=== PATIENT | female | born 1950 | race Caucasian/White ===

== ENCOUNTER 2017-02-17 06:06 | Inpatient (IN) | payer OTHER ==
--- NOTE | ~2017-02-17 | CN ---
Consultation Report [facility] [address] [place]. [address] NAME: JATIN HENNESSY : 54 STATUS : ADM Pato PAT#: [id number] AGE: 67 ADM/REG DATE : 02/17/17 MR#: [id number] REPORT SERV DATE: 02/17/17 DICTATED BY: CLYDE VALLEJO DATE: 02/17/17 REPORT STATUS : Draft TRANSCRIBED BY: MODTalha DATE: 02/17/17 CONSULTATION DATE OF CONSULTATION: 02/17/2017 REASON FOR CONSULTATION: Evaluation for symptomatic carotid stenosis. BRIEF HISTORY: The patient is a 67-year-old female with past medical history that is unremarkable except for tobacco abuse, who presented to the hospital with sudden onset of right upper extremity and right lower extremity numbness and weakness. She also had difficulty finding her words. Her symptoms have persisted and actually worsened on Monday and . She came into the hospital for further evaluation and treatment. Since that time, she feels like she has gotten better. She still does not feel quite right. In particular, she feels like she has some weakness in her right upper extremity and feels like she is still having trouble finding her words. She denies any other slurred speech. She denies any other stroke-like symptoms in the past. She denies transient monocular blindness. PAST MEDICAL HISTORY: None, but she does not normally see a doctor. PAST SURGICAL HISTORY: None. SOCIAL HISTORY: She smokes. She denies any alcohol or drug use. FAMILY HISTORY: Heart disease, hypertension, and stroke. MEDICATIONS: None. ALLERGIES: PENICILLIN, WHICH CAUSES A RASH. REVIEW OF SYSTEMS: A complete review of systems was performed and is negative with the exception of the aforementioned findings. PHYSICAL EXAMINATION: VITAL SIGNS: Documented on the chart and were reviewed. GENERAL: The patient is awake, alert, and oriented, in no apparent distress. HEAD AND NECK: Benign without any carotid bruits. HEART: Regular rate and rhythm. LUNGS: Clear. ABDOMEN: Soft, nontender, nondistended with a nonaneurysmal aorta. EXTREMITIES: She has a normal complement of upper extremity pulses without any significant edema or ischemic ulcerations. She has palpable femoral, popliteal, and pedal pulses. She has no significant edema or ischemic ulcerations. Consultation Report [facility] [address] [place]. [address] NAME: JATIN HENNESSY : 54 STATUS : ADM Pato PAT#: [id number] AGE: 67 ADM/REG DATE : 02/17/17 MR#: [id number] REPORT SERV DATE: 02/17/17 DICTATED BY: CLYDE VALLEJO DATE: 02/17/17 REPORT STATUS : Draft TRANSCRIBED BY: MODTalha DATE: 02/17/17 NEUROLOGIC: Reveals a little bit of difficulty finding her words. She is able to speak. She has a mild pronator drift on the right. Otherwise, she has pretty good strength. She has a little bit of weakness in her hip flexors proximally. She is, however, able to lift her leg against gravity. MUSCULOSKELETAL: Reveals no flexion contractures. ASSESSMENT AND PLAN: It looks like this lady has hypertension and has had symptoms of a left hemispheric stroke. She just had an MRI. I reviewed the images and it looks like she has had a left hemispheric stroke in the MCA distribution. She has a carotid duplex that shows grade 3 carotid disease bilaterally. I would like to get a CT angiogram to better delineate her anatomy. If she does indeed have grade 2 or grade 3 left internal carotid artery stenosis, she may benefit from a carotid endarterectomy or stent for stroke risk reduction. Eventually, we may need to talk about performing surgery on her contralateral side for asymptomatic disease. I have spent some time talking to her today about the importance of smoking cessation. She should be on an aspirin and a statin. IT COMPLIANCE ANALYST/MODTalha Clyde Vallejo M.D. / [id number] CC: Konrad John M.D.
--- NOTE | ~2017-02-17 | OP ---
Record Of Operation [facility] [address] [place]. [address] NAME: JATIN HENNESSY : 54 STATUS : ADM Pato PAT#: [id number] AGE: 67 ADM/REG DATE : 02/17/17 MR#: [id number] REPORT SERV DATE: 02/21/17 DICTATED BY: CLYDE VALLEJO DATE: 02/21/17 REPORT STATUS : Draft TRANSCRIBED BY: MODL DATE: 02/21/17 DATE OF PROCEDURE: 02/20/2017 PREOPERATIVE DIAGNOSIS: Symptomatic left internal carotid artery stenosis. POSTOPERATIVE DIAGNOSIS: Symptomatic left internal carotid artery stenosis. PROCEDURE: Left carotid endarterectomy with bovine pericardial patch angioplasty. SURGEON: Clyde Vallejo M.D. PHARMACY RESIDENT: Mohit. ANESTHESIA: General. INDICATIONS: The patient is a 67-year-old female, who presented with left hemispheric stroke like symptoms. Duplex and CT confirmed the bilateral grade 3 internal carotid artery stenosis. Thus, she was consented for a left carotid endarterectomy for stroke risk reduction. DESCRIPTION OF PROCEDURE: After informed consent was obtained, the patient was taken to the operating room and placed in the supine position on the operating table. She was intubated and general anesthesia was administered. The patient's left neck was prepped and draped in the usual sterile fashion. A longitudinal skin incision was made along the left neck. Cautery was used to deepen the incision. I dissected out the left common carotid artery as well as the proximal internal and external carotid artery. I systemically heparinized during the dissection. I controlled the common carotid artery as well as the proximal internal and external carotid arteries. I created a longitudinal arteriotomy from the common carotid artery onto the external carotid artery. I found a severe stenosis in the left carotid bulb without plaque hemorrhage. I then performed an endarterectomy of the distal common carotid artery as well as the proximal internal and external carotid arteries. I then looped loose debris and sewed on a bovine pericardial patch. I flushed of air and debris before tying down the sutures. I then washed out the wound, achieved hemostasis, and closed the wound in layers. The patient awoke without any focal neurologic deficits. However, the patient became extremely hypertensive with a blood pressure of 260. She developed bleeding from her left neck that resolves with hypertension controlled. The patient tolerated the procedure well without any other intraprocedural complications noted. SOCIAL MEDIA ANALYST/MODL Clyde Vallejo M.D. / [id number] Record Of Operation [address] [place] [address] NAME: JATIN HENNESSY : 54 STATUS : ADM Pato PAT#: [id number] AGE: 67 ADM/REG DATE : 02/17/17 MR#: [id number] REPORT SERV DATE: 02/21/17 DICTATED BY: CLYDE VALLEJO DATE: 02/21/17 REPORT STATUS : Draft TRANSCRIBED BY: CHLOE DATE: 02/21/17 CC: Konrad John M.D.
--- NOTE | ~2017-02-17 | CN ---
Consultation Report [facility] [address] [place]. [address] NAME: JATIN HENNESSY : 54 STATUS : ADM Pato PAT#: [id number] AGE: 67 ADM/REG DATE : 02/17/17 MR#: [id number] REPORT SERV DATE: 02/17/17 DICTATED BY: DATE: REPORT STATUS : Draft TRANSCRIBED BY: MODL DATE: 02/17/17 NEUROLOGY CONSULTATION DATE OF CONSULTATION: 02/17/2017 REASON FOR CONSULT: Stroke. HISTORY OF PRESENT ILLNESS: This is a 67-year-old female who presented to [facility] as a transfer from outside hospital on 02/17/2017. The patient reports on 02/15/2017, she started experiencing numbness in the right lower extremity with mild associated weakness as well as some weakness in the right upper extremity and numbness. The patient's symptom has remained stable since onset with the patient having some dysarthria on the morning of 02/17/2017. The patient denies similar symptoms in the past and denies any left-sided involvement. The patient denies any vision abnormalities and denies any current language difficulties. The patient is not aware she has elevated blood pressure which was noted to be 260/94 at the outside hospital. The patient thus is aware that she has hypertension as a past medical history but does not remember if she was supposed to be on medication for blood pressure. The patient currently does not have a primary care physician. Otherwise, the patient denies any recent illness, fever, chills, nausea, vomiting, chest pain, or shortness of breath and denies any medication she takes at home. PAST MEDICAL HISTORY: The patient's past medical history is significant for hypertension. Review of systems negative except for those mentioned in the HPI. ALLERGIES: THE PATIENT REPORTS ALLERGY TO PENICILLIN. SOCIAL HISTORY: Reports tobacco usage. Denies alcohol usage and denies illicit drug usage. FAMILY HISTORY: Significant for heart disease as well as blood pressure issue, cancer, and stroke. The patient denies any home medications prior to the hospitalization. Again review of systems negative except for those mentioned in the HPI. PHYSICAL EXAMINATION: VITAL SIGNS: The patient, upon hospital arrival, was noted to have vital signs with T-max of 97.7, heart rate of 66, respirations of 16, and blood pressure of 225/88. GENERAL: The patient is well developed, well nourished, in no acute distress. CARDIOVASCULAR: Regular rate and rhythm. No carotid bruits were otherwise auscultated. PULMONARY: Examination was clear to auscultation bilaterally. NEUROLOGICAL: Generally, the patient is alert and oriented to person, place, year, and month. Follows simple and 2-step commands. Usually distracted at the time of evaluation. Intact registration. Difficulties with some recalls. No dysarthria and no aphasia. Consultation Report [facility] [id number] [place]. [address] NAME: JATIN HENNESSY : 54 STATUS : ADM Pato PAT#: [id number] AGE: 67 ADM/REG DATE : 02/17/17 MR#: [id number] REPORT SERV DATE: 02/17/17 DICTATED BY: DATE: REPORT STATUS : Draft TRANSCRIBED BY: MODTalha DATE: 02/17/17 Follows simple and 2-step commands. Cranial nerves 2 through 12, pupils equal, round, and reactive to light. Extraocular eye movement was noted to be intact with intact peripheral vision. Decreased nasolabial fold on the right. Mild dysarthria was noted on evaluation but otherwise symmetrical facial sensation was noted. Midline tongue. Normal palatal movement. Normal hearing. The patient was noted to have mild pronator drift on the right upper extremity but otherwise 5/5 proximal and distal strength in bilateral upper extremity. Symmetrical sensation in bilateral upper extremity. Normal ejqxao-ow-rudj examination without ataxia with the patient noted to have 5/5 bilateral lower extremity strength. Reports decreased sensation on the right with tingling. Deep tendon reflex was 2+ throughout. No toe movement on the right plantar reflex. Downgoing toe on the left plantar reflex. The patient demonstrated normal stable gait. LABORATORY STUDY: Laboratory study is currently pending. MRI is pending. Echocardiogram is pending. IMPRESSION: 1. Right hemiparesis. Concern for possible subcortical stroke versus hypertensive emergency. Recommending slow blood pressure control with a goal of blood pressure less than 210 mmHg. We will continue aspirin and Lipitor that was started during the hospitalization. MRI of the brain as well as stroke workup is pending. NIH stroke scale was 4. The patient's symptoms started on 02/15/2017. 2. Hypertension. Keep systolic blood pressure less than 210 mmHg. 3. Tobacco abuse. Counseled the patient regarding tobacco cessation. RECOMMENDATIONS: 1. Aspirin and Lipitor. 2. MRI of the brain without contrast. 3. MRA of the head and neck. 4. Echocardiogram. 5. Fasting lipid panel and hemoglobin A1c. 6. Keep systolic blood pressure less than 210 mmHg. 7. The patient was counseled regarding tobacco cessation. [facility]/MODL Aris Wilkerson MD / [id number] CC: Konrad John M.D.
--- NOTE | ~2017-02-17 | HP ---
History And Physical [facility] [address] [facility] [place]. [address] NAME: JATIN HENNESSY : 54 STATUS : ADM Pato PAT#: [id number] AGE: 67 ADM/REG DATE : 02/17/17 MR#: [id number] REPORT SERV DATE: 02/17/17 DICTATED BY: REYES JOHN DATE: 02/17/17 REPORT STATUS : Draft TRANSCRIBED BY: MODL DATE: 02/17/17 DATE OF ADMISSION: 02/17/2017 IDENTIFYING DATA: A 67-year-old white female, who has no primary care provider. CHIEF COMPLAINT: Possible stroke. HISTORY OF PRESENT ILLNESS: This history of present illness is obtained by discussion directly with the patient as well as her son and [id number] at the bedside with her permission as well as reviewing the records that came with her from [facility] in [place], [place]. This patient states on Monday of this week, in the evening she noticed numbness of her right hand. By Monday of this week, she still had numbness in her right hand, but also numbness in her right leg, mostly in the thigh, a little bit in the foot, then on 02/16/2017, she noticed the same findings. Finally, decided to go to the emergency room at [facility] in [place]. On arrival there, her blood pressure was 260/94, and their notes indicated that they treated her with a combination of hydralazine 10 mg and 10 mg IV, plus clonidine 0.2 mg orally, and Zofran 4 mg intravenously. They state her NIH stroke score was 1. They reported a CT of the brain was unremarkable and requested transfer here for neurology evaluation. The patient states, she has never had any episodes like this in the past. She admits that along with this episode, she noticed some weakness in her right hand, and she stated yesterday evening her speech seemed a little difficult. Her family states, it sound a little slurred, and she was reportedly a little slow to comprehend things. She states, she was swallowing fine, no headache, no past similar history, no history of head trauma. REVIEW OF SYSTEMS: On review of systems, she states she has a dry mouth. She has a chronic stable cough. She had some nausea and vomiting with dry heaves yesterday. She has chronic constipation. She had some recent dark stools, when she use Pepto-Bismol. She states, she has had decreased appetite for the last three days. She also states, she has been taking some over-the- counter ibuprofen, maybe three or four times per month. 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 ALLERGIES: SHE STATES, SHE IS ALLERGIC TO PENICILLIN. SHE STATES, IT CAUSES HER A RASH. PAST MEDICAL HISTORY: She denies any history of diabetes, asthma, COPD, heart disease, stroke, seizure, peptic ulcer, biliary tract disease, liver disease, chronic kidney disease, kidney stones, thyroid disease, cancer, or sleep apnea. History And Physical [address] [address] NAME: JATIN HENNESSY : 54 STATUS : ADM Pato PAT#: [id number] AGE: 67 ADM/REG DATE : 02/17/17 MR#: [id number] REPORT SERV DATE: 02/17/17 DICTATED BY: REYES JOHN DATE: 02/17/17 REPORT STATUS : Draft TRANSCRIBED BY: CHLOE DATE: 02/17/17 She states, her only hospitalization in the past was for childbirth. She states that, she may have had high blood pressure, but then later states she really has not had it evaluated by physician. She is on no medications. PAST SURGICAL HISTORY: None. HOME MEDICATIONS: No prescription medications. SOCIAL HISTORY: She smokes a pack per day for about thirty years. She quit when these symptoms started three days ago. She denies alcohol use. 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 She lives with son and [id number]-[id number], who are present at the bedside. She walks without an assistive device. FAMILY HISTORY: Mother reportedly had heart disease. Dad may have had high blood pressure, but had some unknown type of cancer that he of. Siblings, one sister with a stroke, one brother with complications from alcohol. DIAGNOSTIC DATA: Labs from [facility] dated 02/17/2017, white count 9, hemoglobin 15.1, platelets 339,000. Sodium 142, potassium 3.6, chloride 105, CO2 is 25, BUN 9.7, creatinine 0.8, glucose 121. Liver profile, normal. Urine specimen showed leukocyte esterase 3+, 25 to 50 white blood cells, 0 to 2 epithelial cells, 2 to 5 red blood cells, trace bacteria. PHYSICAL EXAMINATION: VITAL SIGNS: Temp 97.7, pulse 66, respirations 16, blood pressure 225/88, O2 saturation is 98% on room air. BMI is 29.5. GENERAL: Well-developed female, who at the moment appears in no acute distress. HEENT: Head is atraumatic. Pupils are equal, round, and reactive to light. Extraocular motions are intact. No scleral icterus noted. Ears, externally unremarkable. No inflammatory changes noted. Normal hearing bilaterally. Nose, noninflamed externally. Septum midline. Nares patent. Mouth is dry, but there is good gag. No redness of the throat, gums, or lips. NECK: Supple. No lymph node or thyroid enlargement. Carotids have a prominent right-sided bruit. No jugular venous distention. LUNGS: Clear. Good air flow. No wheezes. No rhonchi. Good air flow throughout in all lung hull. Normal respiratory effort. HEART: Regular rate and rhythm without murmur, gallop, click, or rub. ABDOMEN: Bowel sounds are positive. Soft, nondistended, nontender. No masses. No organomegaly. No bruits in the abdomen. EXTREMITIES: Warm good pulses. No clubbing, no cyanosis, no edema. No actively inflamed skin or joints. NEUROLOGIC: She is alert, oriented, and cooperative with grossly normal mentation and speech as well as motor and cranial nerves 2 through 12. Her nrzgxz-sp-azax testing bilaterally is normal. Her rapid alternating movements are normal. She is right handed. No Babinski. No clonus noted. She has mildly diminished sensation in her right forearm distally. History And Physical [address] [place]. [address] NAME: JATIN HENNESSY : 54 STATUS : ADM Pato PAT#: [id number] AGE: 67 ADM/REG DATE : 02/17/17 MR#: [id number] REPORT SERV DATE: 03/24/17 DICTATED BY: REYES JOHN DATE: 02/17/17 REPORT STATUS : Draft TRANSCRIBED BY: CHLOE DATE: 02/17/17 ASSESSMENT: 1. Right-sided symptoms with hand and forearm numbness, slurred speech, and some weakness in the right hand reported by family lasting over the last three plus days. This is suggestive of left middle cerebral artery ischemic infarction. 2. Hypertensive urgency in the emergency room and her initial blood pressure here represents that as well. 3. Cigarette smoker. 4. Right carotid bruit. 5. Asymptomatic bacteriuria. PLAN: The patient is being admitted to the stroke unit on telemetry. We are going to get an EKG and echo. We will get carotid ultrasound, get an MRI of the brain, MRA of the brain as well. I have asked Neurology to see the patient. We will put her on statin and aspirin. Blood pressure treatment will be dependent on if it is greater than 220 systolic or greater than 120 diastolic. Son and daughter updated at bedside at this time. RSG/CHLOE Reyes John M.D. / [id number] CC: Reyes John M.D.
--- NOTE | ~2017-02-17 | DS ---
Discharge Summary [facility] [address] [place]. [address] NAME: JATIN HENNESSY : 54 STATUS : DIS IN PAT#: [id number] AGE: 67 ADM/REG DATE : 02/17/17 MR#: [id number] REPORT SERV DATE: 02/25/17 DICTATED BY: NHUNG CHÁVEZ DATE: 02/25/17 REPORT STATUS : Draft TRANSCRIBED BY: MODL DATE: 02/25/17 ADMISSION DATE: 02/17/2017 DISCHARGE DATE: 02/25/2017 DISCHARGE DIAGNOSES: 1. Acute left middle cerebral artery stroke. 2. Left carotid stenosis, status post left carotid endarterectomy. 3. Peripheral vascular disease. 4. Tobacco abuse. 5. Hypertension, new diagnosis. The patient was put on multiple antihypertensive regimens this admission. 6. Constipation, relieved. CONSULTANTS: 1. Dr. Vallejo. 2. Dr. Wilkerson. PROCEDURES: Left carotid endarterectomy. HISTORY OF PRESENTATION: This is a 67-year-old female patient, who does not have primary care physician or past medical history, came to the hospital with neurology symptoms of right arm weakness and numbness. Please see dictated H and P. HOSPITAL COURSE: She was admitted to the hospital with ruled out stroke, had evaluation with Neurology Department. During the evaluation, she was found to have left MCA stroke and also was found to have carotid stenosis. Because of the symptom of the stroke and the critical stenosis, the patient was seen by Dr. Vallejo and had a left-sided carotid endarterectomy. After the procedure, she was recovering well. The main issue after the stroke was controlling the blood pressure. She was not treated for blood pressure in the past prior to this admission. She was put on multiple antihypertensive regimens and finally, her blood pressure is more under control. She is a current smoker. Long discussion was given for the education of smoking cessation, and she voiced understanding. She also suffered from constipation with the Percocet use in the hospital and enema helped to be relieved. Overall, had a stable hospitalization and did not have any deficit from the stroke, and the patient is ambulating without any problem. Will be discharged to home. Highly recommended to find a primary care physician and also follow up with Dr. Vallejo in four to six weeks. DISCHARGE MEDICATIONS: Norvasc 10 mg twice a day, aspirin 325 mg once a day, Lipitor 40 mg once at bedtime, Lopressor 25 mg twice a day, triamterene and hydrochlorothiazide 37.5/25 one tab once a day, ranitidine 150 mg once a day, multivitamin once a day, hydrocodone as needed. Discharge Summary [place] [id number] [place]. [address] NAME: JATIN HENNESSY : 54 STATUS : DIS IN PAT#: [id number] AGE: 67 ADM/REG DATE : 02/17/17 MR#: [id number] REPORT SERV DATE: 02/25/17 DICTATED BY: NHUNG CHÁVEZ DATE: 02/25/17 REPORT STATUS : Draft TRANSCRIBED BY: CHLOE DATE: 02/25/17 TIME SPENT: More than 30 minutes on discharge coordination and education. EKL/CHLOE Nhung Chávez M.D. / [id number] CC: Nhung Chávez M.D.
[2017-02-17] MEDS ORDERED: ZANTAC 150 PO (11:49)
[2017-02-17] MEDS ORDERED: MULTIVITAMI1 PO (11:50)
[2017-02-17] MEDS ORDERED: ADVIL PO (11:50)
[2017-02-17 12:05] LABS: BASOPHILS 0.3 %; BASOPHILS ABSOLUTE 0.03 10/3/uL (0.0-0.16); EOSINOPHILS 0.3 %; EOSINOPHILS ABSOLUTE 0.03 10/3/uL (0.0-0.53); HEMATOCRIT 43.1 % (36.0-48.0); HEMOGLOBIN 15.1 g/dL (12.0-16.0); IMMATURE GRANULOCYTES 0.3 %; IMMATURE GRANULOCYTES ABSOLUTE 0.03 10/3/uL (0.0-0.11); LYMPHOCYTES 18.7 %; LYMPHOCYTES ABSOLUTE 1.89 10/3/uL (0.67-4.30); MEAN CORPUSCULAR VOLUME 88.5 fL (80-100); MEAN PLATELET VOLUME 9.9 fL (9.2-13.0); MONOCYTES 8.7 %; MONOCYTES ABSOLUTE 0.88 10/3/uL (0.21-1.20); NEUTROPHILS 71.7 %; NEUTROPHILS ABSOLUTE 7.26 10/3/uL (2.02-8.40); PLATELET COUNT 327 10/3/uL (150-400); RBC DISTRIBUTION WIDTH 12.7 % (12.0-16.0); RED CELL COUNT 4.87 10/6/uL (4.0-5.6); WHITE BLOOD CELLS 10.1 10/3/uL (4.5-10.5)
[2017-02-17 12:07] LABS: MANUAL DIFF NO %
[2017-02-17 12:15] LABS: INTERNATIONAL NORMAL RATI 1.1 UNITS (-); PARTIAL THROMBO TIME 28.8 SEC (22.5-37.2); PROTIME (NOT ORD) 13.7 SEC (12.0-14.5)
[2017-02-17 12:31] LABS: CHOLESTEROL 157 MG/DL (< 200); CK-MB 12.6 NG/ML; CKMB INDEX (NOT ORD) 14.7; CPK 86 U/L (0-200); HDL CHOLESTEROL 52 MG/DL (> 49); LDL CHOLESTEROL 84 MG/DL (< 130); NON-HDL CHOLESTEROL 105 MG/DL (< 160); TRIGLYCERIDE 107 MG/DL (< 150); TROPONIN I <0.02 NG/ML (<0.05)
[2017-02-17 19:47] LABS: ASCORBIC ACID (UR NOT ORDER) NEG (NEG); BILIRUBIN, URINE NEGATIVE (NEG); KETONE, URINE TRACE MG/DL (NEG); LEUKOCYTE ESTERASE(NOT OR SMALL (NEG); WBC (NOT ORDERED) (RFLEX) 2 (0-5)
[2017-02-17 20:55] LABS: CK-MB 12.4 NG/ML; CPK 91 U/L (0-200); TROPONIN I <0.02 NG/ML (<0.05)
[2017-02-17 20:57] LABS: CKMB INDEX (NOT ORD) 13.6
[2017-02-17 22:42] LABS: CREATININE 0.81 MG/DL (0.55-1.02)
[2017-02-18 04:36] LABS: CK-MB 9.5 NG/ML; CPK 72 U/L (0-200); TROPONIN I <0.02 NG/ML (<0.05)
[2017-02-18 04:39] LABS: CKMB INDEX (NOT ORD) 13.2
[2017-02-19 15:22] LABS: BASOPHILS 0.3 %; BASOPHILS ABSOLUTE 0.03 10/3/uL (0.0-0.16); EOSINOPHILS 0.9 %; EOSINOPHILS ABSOLUTE 0.08 10/3/uL (0.0-0.53); HEMATOCRIT 44.8 % (36.0-48.0); HEMOGLOBIN 15.6 g/dL (12.0-16.0); IMMATURE GRANULOCYTES 0.4 %; IMMATURE GRANULOCYTES ABSOLUTE 0.04 10/3/uL (0.0-0.11); LYMPHOCYTES 25.8 %; LYMPHOCYTES ABSOLUTE 2.35 10/3/uL (0.67-4.30); MEAN CORPUS HGB CONC 34.8 g/dL (32.0-36.0); MEAN CORPUSCULAR HEMOGLOB 30.6 pg (26.0-34.0); MEAN CORPUSCULAR VOLUME 87.8 fL (80-100); MEAN PLATELET VOLUME 10.2 fL (9.2-13.0); MONOCYTES 8.4 %; MONOCYTES ABSOLUTE 0.77 10/3/uL (0.21-1.20); NEUTROPHILS 64.2 %; NEUTROPHILS ABSOLUTE 5.85 10/3/uL (2.02-8.40); PLATELET COUNT 330 10/3/uL (150-400); RBC DISTRIBUTION WIDTH 12.9 % (12.0-16.0); WHITE BLOOD CELLS 9.1 10/3/uL (4.5-10.5)
[2017-02-19 15:23] LABS: MANUAL DIFF NO %
[2017-02-19 15:35] LABS: BUN (BLOOD UREA NITROGEN) 11 MG/DL (6-23); CALCIUM, SERUM 9.3 MG/DL (8.5-10.4); CHLORIDE, SERUM 106 MMOL/L (96-112); CO2 (CARBON DIOXIDE) 26 MMOL/L (24-34); CREATININE 0.98 MG/DL (0.55-1.02); GFR AFRICAN AMERICAN 70 ML/MIN (>=60); GFR NON AFRICAN AMERICAN 61 ML/MIN (>=60); GLUCOSE, SERUM 140 MG/DL (60-99); POTASSIUM, SERUM 4.4 MMOL/L (3.5-5.3); SODIUM, SERUM 142 MMOL/L (135-148)
[2017-02-20 07:29] LABS: HEMOGLOBIN 15.4 g/dL (12.0-16.0); MEAN CORPUSCULAR HEMOGLOB 30.8 pg (26.0-34.0); PLATELET COUNT 311 10/3/uL (150-400); RBC DISTRIBUTION WIDTH 12.9 % (12.0-16.0); WHITE BLOOD CELLS 8.6 10/3/uL (4.5-10.5)
[2017-02-20 07:30] LABS: MANUAL DIFF YES %
[2017-02-20 07:42] LABS: A/G RATIO 0.9 (0.7-1.9); ALBUMIN 3.6 G/DL (3.5-5.0); ALKALINE PHOSPHATASE 79 U/L (45-117); BUN (BLOOD UREA NITROGEN) 12 MG/DL (6-23); CALCIUM, SERUM 9.1 MG/DL (8.5-10.4); CHLORIDE, SERUM 104 MMOL/L (96-112); CO2 (CARBON DIOXIDE) 26 MMOL/L (24-34); GFR AFRICAN AMERICAN 90 ML/MIN (>=60); GFR NON AFRICAN AMERICAN 77 ML/MIN (>=60); POTASSIUM, SERUM 4.3 MMOL/L (3.5-5.3); SGOT(AST) 15 U/L (5-40); SGPT(ALT) 23 U/L (5-65); SODIUM, SERUM 141 MMOL/L (135-148); TOTAL BILIRUBIN 0.5 MG/DL (0-1.2); TOTAL PROTEIN 7.6 G/DL (6.0-8.5)
[2017-02-20 07:43] LABS: GLUCOSE, SERUM 104 MG/DL (60-99)
[2017-02-20 07:55] LABS: EOSINOPHILS 1 %; EOSINOPHILS ABSOLUTE (CALC) 0.09 10/3/uL (0.0-0.53); LYMPHOCYTES 10 %; LYMPHOCYTES ABSOLUTE (CALC) 0.86 10/3/uL (0.67-4.30); MONOCYTES 4 %; MONOCYTES ABSOLUTE (CALC) 0.34 10/3/uL (0.21-1.20); NEUTROPHILS ABSOLUTE (CALC) 7.31 10/3/uL (2.02-8.40); PLATELET ESTIMATE ADQ (ADEQUATE); RBC MORPHOLOGY NORM (NORMAL); SEGMENTED NEUTROPHIL (0) 85 %; TOTAL NUCLEATED CELLS 100
[2017-02-21 03:48] LABS: BASOPHILS 0.2 %; BASOPHILS ABSOLUTE 0.03 10/3/uL (0.0-0.16); EOSINOPHILS 0.2 %; EOSINOPHILS ABSOLUTE 0.03 10/3/uL (0.0-0.53); HEMATOCRIT 37.8 % (36.0-48.0); IMMATURE GRANULOCYTES 0.5 %; IMMATURE GRANULOCYTES ABSOLUTE 0.06 10/3/uL (0.0-0.11); LYMPHOCYTES 17.1 %; LYMPHOCYTES ABSOLUTE 2.16 10/3/uL (0.67-4.30); MANUAL DIFF NO %; MEAN CORPUS HGB CONC 34.4 g/dL (32.0-36.0); MEAN CORPUSCULAR HEMOGLOB 30.6 pg (26.0-34.0); MEAN CORPUSCULAR VOLUME 88.9 fL (80-100); MEAN PLATELET VOLUME 9.8 fL (9.2-13.0); MONOCYTES 9.1 %; MONOCYTES ABSOLUTE 1.15 10/3/uL (0.21-1.20); NEUTROPHILS 72.9 %; NEUTROPHILS ABSOLUTE 9.17 10/3/uL (2.02-8.40); PLATELET COUNT 284 10/3/uL (150-400); RBC DISTRIBUTION WIDTH 12.9 % (12.0-16.0); RED CELL COUNT 4.25 10/6/uL (4.0-5.6); WHITE BLOOD CELLS 12.6 10/3/uL (4.5-10.5)
[2017-02-21 04:00] LABS: BUN (BLOOD UREA NITROGEN) 13 MG/DL (6-23); CALCIUM, SERUM 8.5 MG/DL (8.5-10.4); CHLORIDE, SERUM 105 MMOL/L (96-112); CO2 (CARBON DIOXIDE) 24 MMOL/L (24-34); CREATININE 0.69 MG/DL (0.55-1.02); GFR AFRICAN AMERICAN 106 ML/MIN (>=60); GFR NON AFRICAN AMERICAN 91 ML/MIN (>=60); GLUCOSE, SERUM 117 MG/DL (60-99); POTASSIUM, SERUM 4.1 MMOL/L (3.5-5.3); SODIUM, SERUM 140 MMOL/L (135-148)
[2017-02-22 03:33] LABS: BUN (BLOOD UREA NITROGEN) 11 MG/DL (6-23); CALCIUM, SERUM 8.5 MG/DL (8.5-10.4); CHLORIDE, SERUM 104 MMOL/L (96-112); CO2 (CARBON DIOXIDE) 28 MMOL/L (24-34); GFR AFRICAN AMERICAN 105 ML/MIN (>=60); GFR NON AFRICAN AMERICAN 91 ML/MIN (>=60); GLUCOSE, SERUM 99 MG/DL (60-99); POTASSIUM, SERUM 4.2 MMOL/L (3.5-5.3); SODIUM, SERUM 138 MMOL/L (135-148)
[2017-02-24] MEDS ORDERED: NORV10 PO (08:57)
[2017-02-24] MEDS ORDERED: ASA5GR PO (08:58)
[2017-02-24] MEDS ORDERED: LIPITOR40 PO (08:59)
[2017-02-24] MEDS ORDERED: LOP25 PO (09:00)
[2017-02-24] MEDS ORDERED: MAX25 PO (09:01)
[2017-02-24] MEDS ORDERED: NORCO1 TA1 PO (09:02)
== END 2017-02-25 11:18 | disposition home or self-care (01) | DRG 38 ==
LOC: 1SO 06:06 → CVICU 02-20 17:35 → 1SO 02-22 14:59
PROVIDERS: Hospitalist; Internal Medicine; Surgery
PROC: 03CL0ZZ Extirpation of Matter from Left Internal Carotid Artery, Open Approach (ICD-10-PCS; 2017-02-20)
PROC: 03CN0ZZ Extirpation of Matter from Left External Carotid Artery, Open Approach (ICD-10-PCS; 2017-02-20)
PROC: 03UJ0JZ Supplement Left Common Carotid Artery with Synthetic Substitute, Open Approach (ICD-10-PCS; 2017-02-20)
PROC: 03CJ0ZZ Extirpation of Matter from Left Common Carotid Artery, Open Approach (ICD-10-PCS; principal; 2017-02-20 11:15)
DX: I63.232 Cerebral infarction due to unspecified occlusion or stenosis of left carotid arteries (principal); G81.91 Hemiplegia, unspecified affecting right dominant side; E78.5 Hyperlipidemia, unspecified; I73.9 Peripheral vascular disease, unspecified; I16.0 Hypertensive urgency; F17.210 Nicotine dependence, cigarettes, uncomplicated; R29.704 NIHSS score 4; R47.1 Dysarthria and anarthria; K21.9 Gastro-esophageal reflux disease without esophagitis; K59.03 Drug induced constipation; T40.2X5A Adverse effect of other opioids, initial encounter; Z79.82 Long term (current) use of aspirin; Z79.891 Long term (current) use of opiate analgesic; Z79.899 Other long term (current) drug therapy; Z82.49 Family history of ischemic heart disease and other diseases of the circulatory system; Z28.20 Immunization not carried out because of patient decision for unspecified reason; Z80.8 Family history of malignant neoplasm of other organs or systems; Z82.3 Family history of stroke; Z88.0 Allergy status to penicillin
CPT/HCPCS: 70498; 70544; 70551-52; 71020; 74000; 80048; 80053; 80061; 81001; 82272; 82550; 82553; 82565; 83036; 83735; 84443; 84484; 85025; 85610; 85730; 87086; 88304; 88311; 93005; 93306; 93880; A9270-GY; J0360; J0690; J2270; J2370; J2405; J2710; J3010; Q9967

== ENCOUNTER 2017-02-27 18:35 | Inpatient (IN) | payer OTHER, MEDICARE ==
--- NOTE | ~2017-02-27 | DS ---
Discharge Summary [facility] [address] [place]. [address] NAME: JATIN HENNESSY : 54 STATUS : DIS IN PAT#: [id number] AGE: 67 ADM/REG DATE : 02/27/17 MR#: [id number] REPORT SERV DATE: 03/04/17 DICTATED BY: REYES JOHN DATE: 03/04/17 REPORT STATUS : Draft TRANSCRIBED BY: MODL DATE: 03/04/17 ADMISSION DATE: 02/27/2017 DISCHARGE DATE: 03/04/2017 CONSULTANTS: 1. Clyde Vallejo M.D., Vascular. 2. Leon Frost, Gastroenterology. DISCHARGE DIAGNOSES: 1. Right lower extremity numbness, transient, resolved. 2. Nausea and vomiting postprandial. 3. Anxiety disorder. 4. Hyponatremia, due to volume depletion. 5. Acute kidney injury, mild, resolved. 6. Stroke 02/17/2017 involving left brain. 7. Peripheral arterial disease with severe stenosis of bilateral carotids with left carotid endarterectomy 02/20/2017. 8. Hypertension. 9. Ex-cigarette smoker. 10.Hiatal hernia. 11.Bradycardia with beta blockers. HISTORY: This patient was hospitalized here 02/17/2017 through 02/25/2017 with acute left middle cerebral artery stroke. She was found to have bilateral severe carotid artery stenosis category 3. On 02/20/2017, she underwent left-sided carotid endarterectomy. The patient improved and done well after her stroke and had gone home. At home, she was reportedly very anxious, very nervous, was complaining of some tingling and numbness. The ER thought she was describing right upper extremity but when I met her again on 02/28/2017 she stated it was really numbness in the right lower extremity, not in the arm. She also was having complaints of nausea intermittent, worse after meals. She was referred to our team for further evaluation for possible new stroke or TIA. On return to the hospital, MRI of the brain revealed typical evolution of the acute infarct in left posterior frontal, parietal posterior watershed zone. No areas of acute infarction were noted. In the ER, she had also complained of some shortness of breath with chest discomfort that was vague so they did a CTA of the chest which revealed no evidence for pulmonary embolism. Lungs are clear. Hiatal hernia was noted. Coronaries appeared clear. Ascending and descending thoracic aorta were normal. Admitting partner also had her get a venous Doppler of her legs. There was no clot there. She was up and ambulating. Her numbness in her right leg resolved. She still complained of intermittent nausea and vomiting. CT of the abdomen and pelvis revealed tiny nonobstructing bilateral kidney stones, some perinephric increased density of the right kidney felt by Radiology to represent contrast enhancement from the recent CTA. Tiny stones and sludge in the gallbladder. Small hiatal hernia. No evidence of acute cholecystitis. Discharge Summary [facility] [address] [place]. [address] NAME: JATIN HENNESSY : 54 STATUS : DIS IN PAT#: [id number] AGE: 67 ADM/REG DATE : 02/27/17 MR#: [id number] REPORT SERV DATE: 03/04/17 DICTATED BY: REYES JOHN DATE: 03/04/17 REPORT STATUS : Draft TRANSCRIBED BY: MODTalha DATE: 03/04/17 Abdominal ultrasound, 03/03/2017 showed gallbladder with sludge and some stones, no biliary duct dilatation. There was no thickening of the gallbladder wall, no pericholecystic fluid. No tenderness, not consistent with acute cholecystitis. We had GI see her because of her nausea. They thought we should do an EGD, and they performed that on 03/03/[address] Frost found a medium-sized hiatal hernia. Otherwise, normal mucosa was found. Biopsies for H. pylori were obtained. The rest of the exam was normal. The patient's sisters were at bedside and were supportive but were fairly anxious, and the patient seemed to be much more anxious when the sisters were present. They seem to be genuinely interested in her best good but they would get tearful and emotional when they stated they were going to have to leave and they were afraid that she was going to have more strokes. The patient seemed to be very anxious when they are around, also a bit more anxious when her son was around. The patient expressed that she thought her nausea was related to anxiety. We did start her some BuSpar. It is less likely a gastroparesis. We did not elect to give any Reglan because with BuSpar she seems to be improving. Her sisters were very worried about the postop wound because it had a dressing on it, and they spoke to the nursing staff here numerous times about it and as well as to me, and they called Dr. Vallejo's office several times. I looked at the wound and thought it looked great. Dr. Vallejo did come and see the patient. He indicated he thought she was having normal good wound healing. The patient did develop some hyponatremia and some mild acute kidney injury when she went several days without eating much at all. We gave her some IV fluids. Her creatinine at its worst had gotten up to 1.55, after fluids it improved to 0.95. She also at the same time had a sodium dropped down to 127. She also was on Maxzide so we stopped it. Her sodium is corrected to 135. At discharge, her blood pressures were running systolics in the 130s to 150s, diastolics in the 60s and 70s. She does tend to run a bit bradycardic on metoprolol 25 mg b.i.d. so reducing that dose in half. We are also recommending that she follow up with her PCP. She has not had one. She states she has picked one in the [facility]. She does not recall the name of this new PCP. It was based on the list that the case management manager gave her here and her daughter-in- law helped choose the name of the provider. The patient states with her anxiety and her recent stroke, she is going to take some time off for work which I think makes good sense. DISCHARGE MEDICATIONS: Norvasc 10 mg daily, aspirin 81 mg daily (her sisters were afraid that 325 mg dose is going to make her nauseated), Lipitor 40 mg daily, BuSpar 5 mg b.i.d., Zantac 150 mg every morning. Metoprolol she will take a half of a 25 mg tablet twice a day, Tylenol 650 q.4 hours p.r.n. pain, Zofran 4 mg ODT t.i.d. p.r.n. nausea, and I gave her a prescription for 15 of those. Discharge Summary [facility] [address] [place] [address] NAME: JATIN HENNESSY : 54 STATUS : DIS IN PAT#: [id number] AGE: 67 ADM/REG DATE : 02/27/17 MR#: [id number] REPORT SERV DATE: 03/04/17 DICTATED BY: REYES JOHN DATE: 03/04/17 REPORT STATUS : Draft TRANSCRIBED BY: CHLOE DATE: 03/04/17 She will follow up with a new PCP in the [facility] in the next few weeks and with Dr. Vallejo in about 4-6 weeks. I spent 37 minutes with the patient today. LUCY/CHLOE Reyes John M.D. / [id number] CC: Juan Stanley M.D.
--- NOTE | ~2017-02-27 | EGD ---
EGD REPORT [facility] [address] [place]. [address] NAME: JATIN HENNESSY : 54 STATUS : ADM IN PAT#: [id number] AGE: 67 ADM/REG DATE : 02/27/17 MR#: [id number] REPORT SERV DATE: 03/03/17 DICTATED BY: LEON DAN DATE: 03/03/17 REPORT STATUS : Draft TRANSCRIBED BY: [facility] DATE: 03/03/17 Endoscopy Center Patient Name: Jatin Hennessy Date of : 1950 Attending MD: LEON DAN MD Procedure Date No Time: 03/03/2017 Procedure: Upper GI endoscopy Indications: Nausea, Regurgitation Medicines: Monitored Anesthesia Care Complications: No immediate complications. Estimated blood loss: Minimal. Procedure: Pre-Anesthesia Assessment: - ASA Grade Assessment: IV - A patient with severe systemic disease that is a constant threat to life. After obtaining informed consent, the endoscope was passed under direct vision. Throughout the procedure, the patient's blood pressure, pulse, and oxygen saturations were monitored continuously. The GIF [id number] was introduced through the mouth, and advanced to the second part of duodenum. The upper GI endoscopy was accomplished without difficulty. The patient tolerated the procedure well. Findings: The examined esophagus was normal. A medium-sized hiatus hernia was present. Normal mucosa was found in the entire examined stomach. Biopsies were taken with a cold forceps for Helicobacter pylori testing. Estimated blood loss was minimal. The examined duodenum was normal. Impression: - Hiatus hernia. - Normal mucosa was found in the entire stomach. Biopsied. - Examination otherwise normal Recommendation: - [facility] patient to [facility]. - Await pathology results. - Use Protonix (pantoprazole) 40 mg PO BID. - Clear liquid diet today. Procedure Code(s): --- Professional --- 46626, Esophagogastroduodenoscopy, flexible, transoral; with biopsy, single or multiple EGD REPORT [facility] [address] [place]. [address] NAME: JATIN HENNESSY : 54 STATUS : ADM [facility]#: [id number] AGE: 67 ADM/REG DATE : 02/27/17 MR#: [id number] REPORT SERV DATE: 03/03/17 DICTATED BY: LEON DAN DATE: 03/03/17 REPORT STATUS : Draft TRANSCRIBED BY: [employer] DATE: 03/03/17 Diagnosis Code(s): --- Professional --- K44.9, Diaphragmatic hernia without obstruction or gangrene R11.0, Nausea R11.10, Vomiting, unspecified CPT copyright 2013 [employer]. All rights reserved. The codes documented in this report are preliminary and upon yard stocker review may be revised to meet current compliance requirements. Leon Dan MD LEON DAN MD 03/03/2017 9:13 AM This report has been signed electronically. Number of Addenda: 0 Note Initiated On: 03/03/2017 8:33 AM Scope Withdrawal Time 0 hours 0 minutes 0 seconds [address] [place] [address]
--- NOTE | ~2017-02-27 | CN ---
Consultation Report [facility] [address] [place]. [address] NAME: JATIN HENNESSY : 54 STATUS : ADM IN PAT#: [id number] AGE: 67 ADM/REG DATE : 02/27/17 MR#: [id number] REPORT SERV DATE: 03/01/17 DICTATED BY: SOILA MORRIS DATE: 03/01/17 REPORT STATUS : Draft TRANSCRIBED BY: MODTalha DATE: 03/01/17 GI CONSULTATION DATE OF CONSULTATION: 03/01/2017 REASON FOR CONSULTATION: Evaluation and management of nausea, intermittent emesis, heartburn. HISTORY OF PRESENT ILLNESS: Ms. Hennessy is a pleasant 67-year-old female patient, who received on GI unattached today to see for complaints of nausea. She has a history of coming into the hospital with a chief complaint of shortness of breath, right upper extremity numbness and tingling. She was recently here and discharged from [facility] on 02/25/2017. She was seen for acute left middle cerebral artery stroke, left carotid stenosis, status post left carotid endarterectomy, and found to have peripheral vascular disease. She has right carotid stenosis that needs intervention, but none obtained at this time as well as tobacco abuse and hypertension. She is concerned she could be having a stroke, thus comes to the hospital. She had a repeat CT of the brain at [facility] in [place], which was negative for any acute findings. Chest x-ray was negative for infiltrates with mild leukocytosis. She has had complaints of nausea, regurgitation of food. She states she has had some mild dysphagia with solid type foods mainly breads. She denies any abdominal pain. She had constipation after anesthetic for carotid endarterectomy, but since resolved. She denies any melena or hematochezia. She states she has never seen a GI physician or had EGD or colonoscopy. I have discussed with her EGD, she wants to follow up on her CT scan, which is to be obtained tomorrow before pursuing any upper endoscopy. PAST MEDICAL HISTORY: Positive for acute left middle cerebral CVA, carotid stenosis with recent left carotid endarterectomy, peripheral vascular disease, hypertension, past tobacco abuse. SURGICAL HISTORY: Carotid endarterectomy on the left. FAMILY HISTORY: Noncontributory from a GI standpoint. SOCIAL HISTORY: Past tobacco cessation approximately one week ago. No illicit, no alcohol. ALLERGIES: PENICILLIN. HOME MEDICATIONS: Norvasc, aspirin, Lipitor, [place], Lopressor, Zantac, Maxzide. PERTINENT LABORATORY DATA: Sodium 133, potassium 3.7, BUN is 12, creatinine 0.76. White count 11.1, hemoglobin 14.4, hematocrit 40.1, platelet count 415, INR 1.1. Lipase 365. Total bilirubin is 0.6, alkaline phosphatase 87, ALT 29, AST 26. Consultation Report [facility] [id number] [place]. [address] NAME: JATIN HENNESSY : 54 STATUS : ADM IN [facility]#: [id number] AGE: 67 ADM/REG DATE : 02/27/17 MR#: [id number] REPORT SERV DATE: 03/01/17 DICTATED BY: SOILA MORRIS DATE: 03/01/17 REPORT STATUS : Draft TRANSCRIBED BY: CHLOE DATE: 03/01/17 REVIEW OF SYSTEMS: A 10-point review of systems has been obtained with pertinent positives being addressed in the history of present illness. PHYSICAL EXAMINATION: VITAL SIGNS: Temperature 98.4, pulse 72, respirations 18, blood pressure is 203/84. NEUROLOGIC: Reveals alert female, sitting up in the bed with no focal deficits being noted. GENERAL: She is cooperative. She is in no obvious acute distress. She is awake, alert, oriented x3. HEAD, EARS, EYES, NOSE, AND THROAT: Anicteric. Pupils are equal, round, reactive to light and accommodation. Normocephalic and atraumatic. NECK: No JVD. No palpable nodes. She has notable left neck dressing, which is clean, dry, and intact. LUNGS: Diminished throughout. CARDIOVASCULAR SYSTEM: Regular rate and rhythm. ABDOMEN: Soft, nondistended, nontender with active bowel sounds in all four quadrants. EXTREMITIES: No edema. Normal distal pulses. SKIN: Warm, dry, and intact. ASSESSMENT: 1. Nausea intermittent as well as gastroesophageal reflux disease and intermittent emesis. 2. Anxiety. 3. Bilateral carotid stenosis, status post left carotid endarterectomy, 02/20/2017. 4. Recent left cerebrovascular accident. 5. Tobacco abuse. PLAN: 1. Follow up CT scan ordered. 2. PPI, H2 inhibitor, and Carafate. 3. Questionable EGD. The patient requests CT results before pursuing any sedated exam. We will follow. KALYAN/CHLOE MEET Koroma / [id number] CC: Konrad John M.D.
--- NOTE | ~2017-02-27 | HP ---
History And Physical [facility] [address] [place]. [address] NAME: JATIN HENNESSY : 54 STATUS : ADM [facility] PAT#: [id number] AGE: 67 ADM/REG DATE : 02/27/17 MR#: [id number] REPORT SERV DATE: 02/28/17 DICTATED BY: CATE MENDOZA DATE: 02/27/17 REPORT STATUS : Draft TRANSCRIBED BY: CHLOE DATE: 02/27/17 DATE OF ADMISSION: 02/27/2017 CHIEF COMPLAINT: Shortness of breath and right upper extremity numbness/tingling. HISTORY OF PRESENT ILLNESS: This is a 67-year-old female, who recently discharged from the hospital by Dr. Nhung Chávez on 02/25/2017 with an acute left middle cerebral CVA and diagnosis of bilateral carotid artery stenoses, status post left carotid endarterectomy by Dr. Vallejo on 02/20/2017. The patient also was treated for hypertension and hyperlipidemia and discharged to home. The patient states around 8 or 9 o'clock this morning, she developed some right upper extremity numbness and tingling, also shortness of breath. She was seen at [facility] in [place]. She had a repeat CT of the brain at that facility that was negative for any acute findings as well as a chest x-ray with no acute infiltrates, although had some mild leukocytosis noted on lab work with a white cell count of 13.2, with a mild shift, and the patient was transferred back to [facility] and accepted by Dr. Chávez. Currently at this time, the patient denies any left upper extremity numbness or tingling. She states that it is back to normal. She denies any chest pain. She states she has never had any chest pain. No cough. No subjective fever or chills. She was given an aspirin at [facility] already. Also, the patient has complaints of some severe regurgitation of food, which is causing a decreased oral intake. She is on ranitidine once a day. She states her blood pressure at home is ranging 160s to 170 systolic. The patient denies any new weaknesses of the body. REVIEW OF SYSTEMS: Please refer to HPI. PAST MEDICAL HISTORY: 1. Acute left middle cerebral CVA, bilateral carotid stenosis status post left CEA. 2. Peripheral vascular disease. 3. Hypertension. PAST SURGICAL HISTORY: CEA. FAMILY HISTORY: Coronary artery disease, hypertension, CVA. SOCIAL HISTORY: A 30-pack year history, quit tobacco abuse approximately a week ago. No illicit drugs. Have multiple family members at bedside. ALLERGIES: PER CHART, TO BE NOTED TO BE PENICILLIN. HOME MEDICATIONS: Amlodipine 10 mg p.o. daily, aspirin 325 mg p.o. q.a.m., Lipitor 40 mg p.o. at bedtime, hydrocodone with acetaminophen 5/325 one tablet p.o. q.8 hours p.r.n., metoprolol tartrate 25 mg p.o. b.i.d., Zantac 150 mg p.o. q.a.m., Maxzide 37.5/ 25 one tablet p.o. q.a.m. PHYSICAL EXAMINATION: History And Physical [address] [address] NAME: JATIN HENNESSY : 54 STATUS : ADM [facility] PAT#: [id number] AGE: 67 ADM/REG DATE : 02/27/17 MR#: [id number] REPORT SERV DATE: 02/28/17 DICTATED BY: CATE MENDOZA DATE: 02/27/17 REPORT STATUS : Draft TRANSCRIBED BY: CHLOE DATE: 02/27/17 VITAL SIGNS: Temperature of 97.2, blood pressure 178/80 with a pulse of 75, respiration of 16, saturating 97% on room air. GENERAL: The patient is alert and oriented x3, very pleasant individual. HEENT: Pupils equal, round, and reactive to light. Extraocular muscles are intact. Moist mucous membranes. CARDIOVASCULAR: S1, S2. Regular rate and rhythm. No murmurs, rubs, or gallops. NECK: With old and healing left carotid incision covered. RESPIRATORY: Clear to auscultation bilaterally. No wheezes or crackles. No signs of tachypnea. ABDOMEN: Positive bowel sounds. Soft and nontender. No rebound. No fluid wave. No distention. EXTREMITIES: 2+ pulse bilaterally. No edema. NEURO: Cranial nerves 2 through 12 grossly intact. Moves all four extremities with 5/5 upper and lower extremity strength bilaterally. The patient denies any numbness of the right upper extremity with good bilateral pulses, radial and dorsalis pedis. LABORATORY DATA: Pending. ASSESSMENT AND PLAN: 1. Shortness of breath. 2. Right upper extremity numbness, paroxysmal. 3. Uncontrolled hypertension. 4. Leukocytosis. 5. Gastroesophageal reflux disease. We will follow up with pending labs. Also, we will check chest x-ray for shortness of breath as well as a D-dimer. Also, we will follow up blood cultures and UA for the patient's leukocytosis. Also, we will repeat MRI to rule out any recurrence of CVA. Also, we will send a courtesy notification to Dr. Vallejo and closely monitor blood pressure. 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 The patient will be admitted to Dr. Konrad John, who will attend to this patient's care on 02/28/2017. PAT/CHLOE Cate Mendoza M.D. / [id number] CC: Nhung Chávez M.D.
[~2017-02-27 18:35] MED LIST: ADVIL PO; ASA5GR PO; LIPITOR40 PO; LOP25 PO; MAX25 PO; MULTIVITAMI1 PO; NORCO1 TA1 PO; NORV10 PO; ZANTAC 150 PO
[2017-02-27] MEDS ORDERED: NORV10 PO (19:23)
[2017-02-27] MEDS ORDERED: ASAB PO (19:23)
[2017-02-27] MEDS ORDERED: LIPITOR40 PO (19:23)
[2017-02-27] MEDS ORDERED: MAX25 PO (19:25)
[2017-02-27] MEDS ORDERED: ZANTAC 150 PO (19:25)
[2017-02-27] MEDS ORDERED: LOP25 PO (19:25)
[2017-02-27] MEDS ORDERED: NORCO1 TA1 PO (19:25)
[2017-02-27 21:51] LABS: BASOPHILS 0.3 %; BASOPHILS ABSOLUTE 0.04 10/3/uL (0.0-0.16); EOSINOPHILS 0.6 %; EOSINOPHILS ABSOLUTE 0.09 10/3/uL (0.0-0.53); HEMATOCRIT 41.2 % (36.0-48.0); HEMOGLOBIN 15.2 g/dL (12.0-16.0); IMMATURE GRANULOCYTES 0.9 %; IMMATURE GRANULOCYTES ABSOLUTE 0.13 10/3/uL (0.0-0.11); LYMPHOCYTES 22.2 %; LYMPHOCYTES ABSOLUTE 3.13 10/3/uL (0.67-4.30); MANUAL DIFF NO %; MEAN CORPUS HGB CONC 36.9 g/dL (32.0-36.0); MEAN CORPUSCULAR HEMOGLOB 31.1 pg (26.0-34.0); MEAN CORPUSCULAR VOLUME 84.3 fL (80-100); MEAN PLATELET VOLUME 9.7 fL (9.2-13.0); MONOCYTES 8.4 %; MONOCYTES ABSOLUTE 1.18 10/3/uL (0.21-1.20); NEUTROPHILS 67.6 %; NEUTROPHILS ABSOLUTE 9.51 10/3/uL (2.02-8.40); PLATELET COUNT 458 10/3/uL (150-400); RBC DISTRIBUTION WIDTH 12.6 % (12.0-16.0); RED CELL COUNT 4.89 10/6/uL (4.0-5.6); WHITE BLOOD CELLS 14.1 10/3/uL (4.5-10.5)
[2017-02-27 21:54] LABS: INTERNATIONAL NORMAL RATI 1.1 UNITS (-); PARTIAL THROMBO TIME 31.2 SEC (22.5-37.2); PROTIME (NOT ORD) 13.8 SEC (12.0-14.5)
[2017-02-27 21:56] LABS: D-DIMER QUANTITATIVE 1.94 ug/mLFEU (< 0.50)
[2017-02-27 22:04] LABS: A/G RATIO 0.7 (0.7-1.9); ALBUMIN 3.5 G/DL (3.5-5.0); ALKALINE PHOSPHATASE 87 U/L (45-117); BUN (BLOOD UREA NITROGEN) 16 MG/DL (6-23); CALCIUM, SERUM 9.5 MG/DL (8.5-10.4); CHLORIDE, SERUM 101 MMOL/L (96-112); CKMB INDEX (NOT ORD) 7.8; CO2 (CARBON DIOXIDE) 22 MMOL/L (24-34); CPK 268 U/L (0-200); CREATININE 0.94 MG/DL (0.55-1.02); GFR AFRICAN AMERICAN 74 ML/MIN (>=60); GFR NON AFRICAN AMERICAN 64 ML/MIN (>=60); GLOBULIN 4.7 G/DL (2.5-4.1); GLUCOSE, SERUM 117 MG/DL (60-99); POTASSIUM, SERUM 3.6 MMOL/L (3.5-5.3); SGOT(AST) 26 U/L (5-40); SGPT(ALT) 29 U/L (5-65); SODIUM, SERUM 136 MMOL/L (135-148); TOTAL BILIRUBIN 0.6 MG/DL (0-1.2); TOTAL PROTEIN 8.2 G/DL (6.0-8.5); TROPONIN I <0.02 NG/ML (<0.05)
[2017-02-28 05:41] LABS: BASOPHILS 0.3 %; BASOPHILS ABSOLUTE 0.03 10/3/uL (0.0-0.16); EOSINOPHILS 1.1 %; EOSINOPHILS ABSOLUTE 0.12 10/3/uL (0.0-0.53); HEMATOCRIT 40.1 % (36.0-48.0); HEMOGLOBIN 14.4 g/dL (12.0-16.0); IMMATURE GRANULOCYTES 1.4 %; IMMATURE GRANULOCYTES ABSOLUTE 0.15 10/3/uL (0.0-0.11); LYMPHOCYTES 25.6 %; LYMPHOCYTES ABSOLUTE 2.84 10/3/uL (0.67-4.30); MANUAL DIFF NO %; MEAN CORPUS HGB CONC 35.9 g/dL (32.0-36.0); MEAN CORPUSCULAR HEMOGLOB 30.6 pg (26.0-34.0); MEAN CORPUSCULAR VOLUME 85.3 fL (80-100); MEAN PLATELET VOLUME 9.7 fL (9.2-13.0); MONOCYTES 8.1 %; NEUTROPHILS 63.5 %; NEUTROPHILS ABSOLUTE 7.06 10/3/uL (2.02-8.40); PLATELET COUNT 415 10/3/uL (150-400); RBC DISTRIBUTION WIDTH 12.4 % (12.0-16.0); WHITE BLOOD CELLS 11.1 10/3/uL (4.5-10.5)
[2017-02-28 05:56] LABS: BUN (BLOOD UREA NITROGEN) 19 MG/DL (6-23); CALCIUM, SERUM 8.9 MG/DL (8.5-10.4); CHLORIDE, SERUM 99 MMOL/L (96-112); CO2 (CARBON DIOXIDE) 23 MMOL/L (24-34); CREATININE 0.87 MG/DL (0.55-1.02); GFR AFRICAN AMERICAN 81 ML/MIN (>=60); GFR NON AFRICAN AMERICAN 70 ML/MIN (>=60); GLUCOSE, SERUM 102 MG/DL (60-99); POTASSIUM, SERUM 3.9 MMOL/L (3.5-5.3); SODIUM, SERUM 134 MMOL/L (135-148)
[2017-03-01 05:43] LABS: CALCIUM, SERUM 9.5 MG/DL (8.5-10.4); CHLORIDE, SERUM 97 MMOL/L (96-112); CO2 (CARBON DIOXIDE) 22 MMOL/L (24-34); CREATININE 0.76 MG/DL (0.55-1.02); GFR AFRICAN AMERICAN 95 ML/MIN (>=60); GFR NON AFRICAN AMERICAN 82 ML/MIN (>=60); GLUCOSE, SERUM 109 MG/DL (60-99); POTASSIUM, SERUM 3.7 MMOL/L (3.5-5.3); SODIUM, SERUM 133 MMOL/L (135-148)
[2017-03-01 05:45] LABS: BUN (BLOOD UREA NITROGEN) 12 MG/DL (6-23)
[2017-03-02 05:58] LABS: BASOPHILS 0.4 %; BASOPHILS ABSOLUTE 0.05 10/3/uL (0.0-0.16); EOSINOPHILS 1.6 %; EOSINOPHILS ABSOLUTE 0.18 10/3/uL (0.0-0.53); HEMATOCRIT 37.1 % (36.0-48.0); HEMOGLOBIN 13.1 g/dL (12.0-16.0); IMMATURE GRANULOCYTES 2.8 %; IMMATURE GRANULOCYTES ABSOLUTE 0.32 10/3/uL (0.0-0.11); LYMPHOCYTES 18.8 %; LYMPHOCYTES ABSOLUTE 2.17 10/3/uL (0.67-4.30); MEAN CORPUS HGB CONC 35.3 g/dL (32.0-36.0); MEAN CORPUSCULAR HEMOGLOB 30.1 pg (26.0-34.0); MEAN CORPUSCULAR VOLUME 85.3 fL (80-100); MEAN PLATELET VOLUME 9.7 fL (9.2-13.0); MONOCYTES 10.4 %; NEUTROPHILS ABSOLUTE 7.61 10/3/uL (2.02-8.40); PLATELET COUNT 416 10/3/uL (150-400); RBC DISTRIBUTION WIDTH 12.7 % (12.0-16.0); RED CELL COUNT 4.35 10/6/uL (4.0-5.6); WHITE BLOOD CELLS 11.5 10/3/uL (4.5-10.5)
[2017-03-02 06:05] LABS: MANUAL DIFF NO %
[2017-03-02 06:31] LABS: BUN (BLOOD UREA NITROGEN) 16 MG/DL (6-23); CHLORIDE, SERUM 92 MMOL/L (96-112); CO2 (CARBON DIOXIDE) 23 MMOL/L (24-34); CREATININE 1.55 MG/DL (0.55-1.02); GFR AFRICAN AMERICAN 40 ML/MIN (>=60); GFR NON AFRICAN AMERICAN 35 ML/MIN (>=60); GLUCOSE, SERUM 79 MG/DL (60-99); POTASSIUM, SERUM 3.8 MMOL/L (3.5-5.3); SODIUM, SERUM 127 MMOL/L (135-148)
[2017-03-02 08:59] LABS: ASCORBIC ACID (UR NOT ORDER) NEG (NEG); BILIRUBIN, URINE NEGATIVE (NEG); KETONE, URINE NEGATIVE (NEG); LEUKOCYTE ESTERASE(NOT OR SMALL (NEG); WBC (NOT ORDERED) (RFLEX) 26 (0-5)
[2017-03-03 05:50] LABS: BASOPHILS 0.5 %; BASOPHILS ABSOLUTE 0.05 10/3/uL (0.0-0.16); EOSINOPHILS 2.7 %; EOSINOPHILS ABSOLUTE 0.29 10/3/uL (0.0-0.53); HEMATOCRIT 35.9 % (36.0-48.0); HEMOGLOBIN 13.1 g/dL (12.0-16.0); IMMATURE GRANULOCYTES ABSOLUTE 0.32 10/3/uL (0.0-0.11); LYMPHOCYTES 22.8 %; LYMPHOCYTES ABSOLUTE 2.45 10/3/uL (0.67-4.30); MEAN CORPUS HGB CONC 36.5 g/dL (32.0-36.0); MEAN CORPUSCULAR HEMOGLOB 31.1 pg (26.0-34.0); MEAN CORPUSCULAR VOLUME 85.3 fL (80-100); MEAN PLATELET VOLUME 9.4 fL (9.2-13.0); MONOCYTES 8.7 %; MONOCYTES ABSOLUTE 0.93 10/3/uL (0.21-1.20); NEUTROPHILS 62.3 %; NEUTROPHILS ABSOLUTE 6.69 10/3/uL (2.02-8.40); PLATELET COUNT 378 10/3/uL (150-400); RBC DISTRIBUTION WIDTH 12.4 % (12.0-16.0); RED CELL COUNT 4.21 10/6/uL (4.0-5.6); WHITE BLOOD CELLS 10.7 10/3/uL (4.5-10.5)
[2017-03-03 05:51] LABS: MANUAL DIFF NO %
[2017-03-03 06:00] LABS: PROTIME (NOT ORD) 13.2 SEC (12.0-14.5)
[2017-03-03 06:07] LABS: A/G RATIO 0.9 (0.7-1.9); ALBUMIN 3.1 G/DL (3.5-5.0); ALKALINE PHOSPHATASE 79 U/L (45-117); BUN (BLOOD UREA NITROGEN) 15 MG/DL (6-23); CHLORIDE, SERUM 93 MMOL/L (96-112); CO2 (CARBON DIOXIDE) 22 MMOL/L (24-34); CREATININE 1.19 MG/DL (0.55-1.02); GFR AFRICAN AMERICAN 55 ML/MIN (>=60); GFR NON AFRICAN AMERICAN 48 ML/MIN (>=60); POTASSIUM, SERUM 4.1 MMOL/L (3.5-5.3); SGOT(AST) 14 U/L (5-40); SGPT(ALT) 22 U/L (5-65); SODIUM, SERUM 128 MMOL/L (135-148); TOTAL BILIRUBIN 0.8 MG/DL (0-1.2); TOTAL PROTEIN 6.7 G/DL (6.0-8.5)
[2017-03-03 06:09] LABS: GLOBULIN 3.6 G/DL (2.5-4.1); GLUCOSE, SERUM 97 MG/DL (60-99)
[2017-03-03 07:43] LABS: SODIUM, URINE 18 MEQ/L
[2017-03-03 07:57] LABS: OSMOLALITY, URINE 260 MOSM/KG (50-1200)
[2017-03-04 07:25] LABS: BASOPHILS 0.5 %; BASOPHILS ABSOLUTE 0.04 10/3/uL (0.0-0.16); EOSINOPHILS 3.3 %; EOSINOPHILS ABSOLUTE 0.25 10/3/uL (0.0-0.53); HEMATOCRIT 35.6 % (36.0-48.0); HEMOGLOBIN 12.8 g/dL (12.0-16.0); IMMATURE GRANULOCYTES 2.6 %; LYMPHOCYTES 23.7 %; MEAN CORPUSCULAR HEMOGLOB 30.8 pg (26.0-34.0); MEAN CORPUSCULAR VOLUME 85.8 fL (80-100); MEAN PLATELET VOLUME 9.2 fL (9.2-13.0); MONOCYTES 12.8 %; MONOCYTES ABSOLUTE 0.97 10/3/uL (0.21-1.20); NEUTROPHILS 57.1 %; NEUTROPHILS ABSOLUTE 4.32 10/3/uL (2.02-8.40); PLATELET COUNT 365 10/3/uL (150-400); RBC DISTRIBUTION WIDTH 12.6 % (12.0-16.0); RED CELL COUNT 4.15 10/6/uL (4.0-5.6); WHITE BLOOD CELLS 7.6 10/3/uL (4.5-10.5)
[2017-03-04 07:26] LABS: MANUAL DIFF NO %
[2017-03-04 07:37] LABS: BUN (BLOOD UREA NITROGEN) 10 MG/DL (6-23); CALCIUM, SERUM 8.8 MG/DL (8.5-10.4); CHLORIDE, SERUM 102 MMOL/L (96-112); CO2 (CARBON DIOXIDE) 24 MMOL/L (24-34); CREATININE 0.95 MG/DL (0.55-1.02); GFR AFRICAN AMERICAN 73 ML/MIN (>=60); GFR NON AFRICAN AMERICAN 63 ML/MIN (>=60); GLUCOSE, SERUM 91 MG/DL (60-99); POTASSIUM, SERUM 4.3 MMOL/L (3.5-5.3); SODIUM, SERUM 135 MMOL/L (135-148)
[2017-03-04] MEDS ORDERED: T PO (10:40)
[2017-03-04] MEDS ORDERED: ZOFRAN4 PO (10:42)
[2017-03-04] MEDS ORDERED: BUSPAR5 PO (10:43)
== END 2017-03-04 13:41 | disposition home or self-care (01) | DRG 880 ==
LOC: 1SO 18:35
PROVIDERS: Hospitalist; Internal Medicine; Internal Medicine Gastroenterology; Nurse Practitioner Family
PROC: 0DB68ZX Excision of Stomach, Via Natural or Artificial Opening Endoscopic, Diagnostic (ICD-10-PCS; principal; 2017-03-03 08:00)
DX: F41.9 Anxiety disorder, unspecified (principal); N17.9 Acute kidney failure, unspecified; E87.1 Hypo-osmolality and hyponatremia; I65.21 Occlusion and stenosis of right carotid artery; K44.9 Diaphragmatic hernia without obstruction or gangrene; I10 Essential (primary) hypertension; I73.9 Peripheral vascular disease, unspecified; K21.9 Gastro-esophageal reflux disease without esophagitis; E86.9 Volume depletion, unspecified; R00.1 Bradycardia, unspecified; R20.2 Paresthesia of skin; R20.9 Unspecified disturbances of skin sensation; K80.20 Calculus of gallbladder without cholecystitis without obstruction; N20.0 Calculus of kidney; Z79.82 Long term (current) use of aspirin; Z79.891 Long term (current) use of opiate analgesic; Z79.899 Other long term (current) drug therapy; Z87.891 Personal history of nicotine dependence; Z88.0 Allergy status to penicillin
CPT/HCPCS: 70551; 71010; 71275; 74176; 76700; 80048; 80053; 81001; 82550; 82553; 83690; 83935; 84300; 84484; 85025; 85379; 85610; 85730; 87086; 88305; 88342; 93005; 93970; 97110-GP; 97116-GP; 97162-GP; A9270-GY; G8978-CK-GP; G8979-CI-GP; J2405; Q9967